=== PATIENT | female | born 1990 | race Caucasian/White ===

== ENCOUNTER 2018-07-10 14:34 | Emergency (ER) | payer OTHER ==
[2013-02-06 16:33] VITALS: BP 108/44
[2018-07-10 14:44] VITALS: PULSE 89; O2SAT 99
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
[2018-07-10] MEDS ORDERED: MOTRIN 600 MG PO ONE (17:19)
[2018-07-10] MEDS ORDERED: MOTRIN 600 MG ONE (17:28)
[2018-07-10 17:41] VITALS: BP 106/76
== END 2018-07-10 17:42 | disposition home or self-care (01) ==
LOC: ED 14:34 → EDBD 14:34 → MERGE 14:34 → ED 17:42
DX: S80.12XA Contusion of left lower leg, initial encounter (principal); S80.11XA Contusion of right lower leg, initial encounter; S70.12XA Contusion of left thigh, initial encounter; S70.11XA Contusion of right thigh, initial encounter; S00.83XA Contusion of other part of head, initial encounter; S40.011A Contusion of right shoulder, initial encounter; Y04.0XXA Assault by unarmed brawl or fight, initial encounter; Y93.89 Activity, other specified; R07.81 Pleurodynia; F15.10 Other stimulant abuse, uncomplicated; R58 Hemorrhage, not elsewhere classified
CPT/HCPCS: 71045; 71100; 99283; A9270-GY